=== PATIENT | male | born 1955 | race Caucasian/White ===

== ENCOUNTER → 2016-08-15 | Outpatient (CLI) | payer MEDICARE, OTHER ==
[~2016-08-15] VITALS: Ht 190.5 cm; Wt 151.2 kg
[~2016-08-15] MED LIST: AMLO-511 PO; ASCO500 PO; CLOT15C TP; FURO40 PO; GABA-531 PO; KDUR10 PO; LISI-661 PO; PENI500T2 PO; SIMV10 PO
[2016-08-15 14:02] VITALS: BP 121/60
== END | disposition home or self-care (01) ==
LOC: HBOWC 13:03
PROVIDERS: ATTEND Emergency Medicine
DX: I87.2 Venous insufficiency (chronic) (peripheral) (principal); L97.811 Non-pressure chronic ulcer of other part of right lower leg limited to breakdown of skin; E66.9 Obesity, unspecified; I11.0 Hypertensive heart disease with heart failure; I50.9 Heart failure, unspecified; M86.8X7 Other osteomyelitis, ankle and foot; Z89.422 Acquired absence of other left toe(s)

== ENCOUNTER → 2016-08-29 | Outpatient (CLI) | payer MEDICARE, OTHER ==
[~2016-08-29] MED LIST changes: -AMLO-511 PO; -CLOT15C TP; +SIMV-259 PO; -SIMV10 PO
[2016-08-29 15:45] VITALS: BP 134/69
== END | disposition home or self-care (01) ==
LOC: HBOWC 14:25
PROVIDERS: ATTEND Emergency Medicine
DX: I87.2 Venous insufficiency (chronic) (peripheral) (principal); L97.811 Non-pressure chronic ulcer of other part of right lower leg limited to breakdown of skin; I11.0 Hypertensive heart disease with heart failure; I50.9 Heart failure, unspecified; E66.9 Obesity, unspecified; M86.8X7 Other osteomyelitis, ankle and foot; Z89.422 Acquired absence of other left toe(s)

== ENCOUNTER → 2017-06-04 | Outpatient (CLI) | payer MEDICARE, OTHER ==
[~2017-06-04] VITALS: Ht 190.5 cm; Wt 159.8 kg
[~2017-06-04] MED LIST changes: +ASPI81 PO
[2017-06-04 12:11] VITALS: BP 136/72
== END | disposition home or self-care (01) ==
LOC: HBOWC 10:40
PROVIDERS: ATTEND Internal Medicine
DX: I87.2 Venous insufficiency (chronic) (peripheral) (principal); L97.811 Non-pressure chronic ulcer of other part of right lower leg limited to breakdown of skin; I11.0 Hypertensive heart disease with heart failure; I50.9 Heart failure, unspecified; M86.8X7 Other osteomyelitis, ankle and foot; Z89.422 Acquired absence of other left toe(s)
CPT/HCPCS: 97597; 97598

== ENCOUNTER → 2017-06-11 | Outpatient (CLI) | payer MEDICARE, OTHER ==
[~2017-06-11] MED LIST changes: -GABA-531 PO; -PENI500T2 PO
[2017-06-11 14:54] VITALS: BP 134/64
== END | disposition home or self-care (01) ==
LOC: HBOWC 14:12
PROVIDERS: ATTEND Internal Medicine
DX: I87.2 Venous insufficiency (chronic) (peripheral) (principal); L97.811 Non-pressure chronic ulcer of other part of right lower leg limited to breakdown of skin; I11.0 Hypertensive heart disease with heart failure; I50.9 Heart failure, unspecified; M86.8X7 Other osteomyelitis, ankle and foot; Z89.422 Acquired absence of other left toe(s)
CPT/HCPCS: 97597

== ENCOUNTER → 2017-06-18 | Outpatient (CLI) | payer MEDICARE, OTHER ==
[2017-06-18 15:05] VITALS: BP 140/76
== END | disposition home or self-care (01) ==
LOC: HBOWC 14:41
PROVIDERS: ATTEND Internal Medicine
DX: I87.2 Venous insufficiency (chronic) (peripheral) (principal); L97.811 Non-pressure chronic ulcer of other part of right lower leg limited to breakdown of skin; I11.0 Hypertensive heart disease with heart failure; I50.9 Heart failure, unspecified; M86.8X8 Other osteomyelitis, other site; Z89.422 Acquired absence of other left toe(s)